=== PATIENT | male | born 1980 | race Two or more races ===

== ENCOUNTER → 2023-04-20 | Emergency (ER) | payer SELFPAY ==
[~2023-04-20] VITALS: Ht 182.9 cm; Wt 91.0 kg
[2023-04-20 20:46] VITALS: BP 156/101; PULSE 91; RESP 21; O2SAT 98
== END | disposition left against medical advice (07) ==
LOC: ER 20:46 → EDBD 20:46
DX: S01.21XA Laceration without foreign body of nose, initial encounter (principal); S20.221A Contusion of right back wall of thorax, initial encounter; S00.511A Abrasion of lip, initial encounter; Y04.2XXA Assault by strike against or bumped into by another person, initial encounter; Y93.89 Activity, other specified; Y92.89 Other specified places as the place of occurrence of the external cause; Y99.8 Other external cause status